=== PATIENT | male | born 1940 | race Caucasian/White ===

== ENCOUNTER → 2016-10-17 | Outpatient (CLI) | payer MEDICARE, OTHER ==
[~2016-10-17] MED LIST: ADVIL200 MG PO; ALFUZOSIN HCL E10 MG PO; ASPIRIN81 MG PO; BENADRYL25 MG PO; BISOPROLOL-HCT1 EACH PO; FLOMAX0.4 MG PO; LISINOPRIL-HCT1 EAC1 PO; PLAVIX75 MG PO; ZANTAC300 MG PO
== END | disposition short-term general hospital (02) ==
LOC: CLUROL 15:08
DX: N40.0 Benign prostatic hyperplasia without lower urinary tract symptoms (principal); Z79.02 Long term (current) use of antithrombotics/antiplatelets; Z79.899 Other long term (current) drug therapy

== ENCOUNTER 2016-10-18 12:34 | Inpatient (IN) | payer MEDICARE, OTHER ==
[~2016-10-18] VITALS: Ht 175.3 cm; Wt 96.6 kg
[~2016-10-18 12:34] MED LIST changes: -ALFUZOSIN HCL E10 MG PO; -LISINOPRIL-HCT1 EAC1 PO
[2016-10-18] MEDS ORDERED: ALFUZOSIN HCL E10 MG PO (13:19)
[2016-10-18] MEDS ORDERED: LISINOPRIL-HCT1 EAC1 PO (13:19)
== END 2016-10-19 14:02 | disposition short-term general hospital (02) | DRG 312 ==
LOC: ER 12:34 → IP 14:30
PROVIDERS: ADMIT Family Medicine
DX: R55 Syncope and collapse (principal); I48.92 Unspecified atrial flutter; R11.2 Nausea with vomiting, unspecified; R79.9 Abnormal finding of blood chemistry, unspecified; I45.10 Unspecified right bundle-branch block; I10 Essential (primary) hypertension; E78.5 Hyperlipidemia, unspecified; E78.00 Pure hypercholesterolemia, unspecified; N40.0 Benign prostatic hyperplasia without lower urinary tract symptoms; Z88.8 Allergy status to other drugs, medicaments and biological substances; Z91.030 Bee allergy status; Z79.02 Long term (current) use of antithrombotics/antiplatelets; Z79.82 Long term (current) use of aspirin; Z79.899 Other long term (current) drug therapy; Z86.73 Personal history of transient ischemic attack (TIA), and cerebral infarction without residual deficits
CPT/HCPCS: A9150; G0480; J2405; J8499

== ENCOUNTER → 2016-11-16 | Outpatient (CLI) | payer MEDICARE, OTHER ==
[~2016-11-16] MED LIST changes: +ALFUZOSIN HCL E10 MG PO; +LISINOPRIL-HCT1 EAC1 PO
== END | disposition short-term general hospital (02) ==
LOC: CLCARD 08:49
DX: I48.92 Unspecified atrial flutter (principal); R55 Syncope and collapse; I10 Essential (primary) hypertension; I34.0 Nonrheumatic mitral (valve) insufficiency; R00.1 Bradycardia, unspecified; E78.5 Hyperlipidemia, unspecified; Z86.73 Personal history of transient ischemic attack (TIA), and cerebral infarction without residual deficits; Z95.0 Presence of cardiac pacemaker